=== PATIENT | female | born 1990 | race Caucasian/White ===

== ENCOUNTER 2019-02-15 18:00 | Emergency (ER) | payer OTHER ==
[2019-02-15] MEDS ORDERED: KETOROLAC 30 MG/1 ML SDV IVP ONE (18:38)
--- NOTE | 2019-02-15 18:38 | EDPHY ---
H & P Time Seen by Provider: 02/15/19 18:17 HPI/ROS: CHIEF COMPLAINT: Chest pain HISTORY OF PRESENT ILLNESS: The patient is a 28-year-old female who presents emergency department with chest pain. Patient has had intermittent chest pain over the past week. She states that they are frequent and shorten duration, lasting 1-2 seconds. They are sharp in nature. Patient felt like her symptoms increased in frequency on Friday. Her symptoms persisted with increased frequency and she went to urgent care. They sent her to the emergency department for further evaluation. The patient denies any shortness of breath. No cough. No fevers or chills. No recent travel. No leg pain or swelling. REVIEW OF SYSTEMS: 10 systems were reveiwed and are negative with the exception of the elements mentioned in the history of present illness. Past Medical/Surgical History: Negative. IUD in place. Family history: The patient's sister has sick sinus syndrome and has a pacer in place. Social history: Patient does not smoke Smoking Status: Never smoked Physical Exam: Vitals noted GENERAL: Well-appearing, in no acute distress, alert. HEENT: Eyes normal to inspection, normal pharynx, no signs of dehydration. NECK: Normal, supple. RESPIRATORY: Clear to auscultation bilaterally, no rales, rhonchi or wheezing. CVS: Regular rate and rhythm, no rubs, murmurs, or gallops. Chest wall: No tenderness palpation ABDOMEN: Soft, nontender, nondistended, no organomegaly. BACK: Normal to inspection, no CVA tenderness. SKIN: Normal color, no rash, warm, dry. No pallor. EXTREMITIES: No pedal edema, no calf tenderness, no Homans sign or cords, no joint swelling. NEURO/PSYCH: Alert and oriented, normal mood and affect, normal motor sensory exam. Constitutional: Initial Vital Signs Temperature (C) 36.9 C 02/15/19 18:07 Heart Rate 72 02/15/19 18:07 Respiratory Rate 16 02/15/19 18:07 Blood Pressure 145/92 H 02/15/19 18:07 O2 Sat (%) 99 02/15/19 18:07 O2 Delivery Mode Room Air Allergies/Adverse Reactions: No Known Allergies Allergy (Verified 02/15/19 18:06) Home Medications: Medication Instructions Recorded Bcp 07/24/14 Medical Decision Making - Diagnostics Imaging Results: Imaging Impressions Chest X-Ray 02/15/19 18:35 Impression: No pneumonia, pleural effusion, or pneumothorax as described. ED Course/Re-evaluation: In the emergency department I discussed possible etiologies with the patient. I answered all her questions. IV was placed. Laboratory studies, EKG and chest x-ray were ordered. Patient was given aspirin orally. Toradol 30 mg IV was given. EKG shows normal sinus rhythm, normal rate, normal axis, normal intervals. There are no ST or T-wave abnormalities. EKG is normal as interpreted by me. CBC is normal. Troponin is negative. D-dimer is 0.3. Chemistry panel is unremarkable. Chest x-ray: No acute disease noted. I discussed the results with the patient. I answered all her questions. Patient states that Toradol was improving her symptoms. She was given warnings prior to leaving. She will return with worsening symptoms. Differential Diagnosis: My differential includes but is not limited to ACS, acute OK, dissection, pulmonary embolus, pleurisy, GERD, hiatal hernia - Data Points Laboratory Results: Laboratory Results 02/15/19 18:40 02/15/19 18:40 02/15/19 02/15/19 02/15/19 18:47 18:40 18:40 WBC RBC Hgb Hct MCV MCH MCHC RDW Plt Count MPV Neut % (Auto) Lymph % (Auto) Wise % (Auto) Eos % (Auto) Baso % (Auto) Nucleat RBC Rel Count Absolute Neuts (auto) Absolute Lymphs (auto) Absolute Monos (auto) Absolute Eos (auto) Absolute Basos (auto) Absolute Nucleated RBC Immature Gran % Immature Gran # D-Dimer Sodium 137 mEq/L mEq/L (135-145) Potassium 3.9 mEq/L mEq/L (3.5-5.2) Chloride 103 mEq/L mEq/L (97-110) Carbon Dioxide 22 mEq/l mEq/l (22-31) Anion Gap 12 mEq/L mEq/L (6-14) BUN 12 mg/dL mg/dL (7-23) Creatinine 0.7 mg/dL mg/dL (0.6-1.0) Estimated GFR > 60 Glucose 90 mg/dL mg/dL (70-100) Calcium 9.5 mg/dL mg/dL (8.5-10.4) POC Troponin I 0.00 ng/mL ng/mL (0.00-0.08) Beta HCG, Qual NEGATIVE 02/15/19 02/15/19 18:40 18:40 WBC 9.16 10^3/uL 10^3/uL (3.80-9.50) RBC 4.33 10^6/uL 10^6/uL (4.18-5.33) Hgb 14.0 g/dL g/dL (12.6-16.3) Hct 39.5 % % (38.0-47.0) MCV 91.2 fL fL (81.5-99.8) MCH 32.3 pg pg (27.9-34.1) MCHC 35.4 g/dL g/dL (32.4-36.7) RDW 11.5 % % (11.5-15.2) Plt Count 237 10^3/uL 10^3/uL (150-400) MPV 9.8 fL fL (8.7-11.7) Neut % (Auto) 56.0 % % (39.3-74.2) Lymph % (Auto) 33.6 % % (15.0-45.0) Wise % (Auto) 5.0 % % (4.5-13.0) Eos % (Auto) 4.4 % % (0.6-7.6) Baso % (Auto) 0.7 % % (0.3-1.7) Nucleat RBC Rel Count 0.0 % % (0.0-0.2) Absolute Neuts (auto) 5.13 10^3/uL 10^3/uL (1.70-6.50) Absolute Lymphs (auto) 3.08 10^3/uL H 10^3/uL (1.00-3.00) Absolute Monos (auto) 0.46 10^3/uL 10^3/uL (0.30-0.80) Absolute Eos (auto) 0.40 10^3/uL 10^3/uL (0.03-0.40) Absolute Basos (auto) 0.06 10^3/uL 10^3/uL (0.02-0.10) Absolute Nucleated RBC 0.00 10^3/uL 10^3/uL (0-0.01) Immature Gran % 0.3 % % (0.0-1.1) Immature Gran # 0.03 10^3/uL 10^3/uL (0.00-0.10) D-Dimer 0.30 ug/mLFEU ug/mLFEU (0.00-0.50) Sodium Potassium Chloride Carbon Dioxide Anion Gap BUN Creatinine Estimated GFR Glucose Calcium POC Troponin I Beta HCG, Qual Medications Given: Discontinued Medications Ketorolac Tromethamine (Toradol) 30 mg IVP EDNOW ONE Stop: 02/15/19 18:39 Last Admin: 02/15/19 18:52 Dose: 30 mg Point of Care Test Results: Chemistry 02/15/19 18:47 POC Troponin I 0.00 ng/mL ng/mL (0.00-0.08) Departure - Departure Disposition: Home, Routine, Self-Care Clinical Impression: Chest pain Qualifiers: Chest pain type: unspecified Qualified Code(s): R07.9 - Chest pain, unspecified Condition: Good Instructions: Chest Pain (ED) Additional Instructions: Your laboratory studies, ekg, and chest x-ray were normal. Call Cardiology first thing tomorrow morning to make the next available appointment. You were given contact information. Return with increasing chest pain, shortness of breath, fever or any other concerns. Referrals: [facility] [Provider Group] - 2-3 days, if not improved Dinora Ott, RN, [facility] [Primary Care Provider] - 2-3 days without fail
[2019-02-15 18:52] LABS: PLATELET COUNT 237 10^3/uL (150-400)
[2019-02-15 19:50] VITALS: BP 111/65
--- NOTE | 2019-02-15 23:13 | CPEKG ---
Test Reason : OPEN Blood Pressure : / mmHG Vent. Rate : 063 BPM Atrial Rate : 064 BPM P-R Int : 169 ms QRS Dur : 087 ms QT Int : 422 ms P-R-T Axes : 066 034 046 degrees QTc Int : 433 ms Sinus rhythm Confirmed by Ursula Humphrey ([id number]) on 02/15/2019 11:12:26 PM Referred By: Ursula Humphrey Confirmed By:Ursula Humphrey
== END 2019-02-15 19:59 | disposition home or self-care (01) ==
DX: R07.9 Chest pain, unspecified (principal)
CPT/HCPCS: 84484-ER; 96374; J1885